=== PATIENT | female | born 1995 ===

== ENCOUNTER 2016-11-29 18:52 | Emergency (ER) | payer MEDICAID, OTHER ==
[2016-11-29 19:29] VITALS: BMI 24.0
[2016-11-29 19:45] VITALS: BP 118/74; PULSE 88; RESP 17; TEMP 98.8; O2SAT 99
--- NOTE | 2016-11-29 20:15 | ED PDOC ---
Arrival/HPI - General Chief Complaint: ENT Problem Time Seen by Provider: 11/29/16 20:12 Historian: Patient - History of Present Illness Narrative History of Present Illness (Text): 11/29/16 20:17 21-year-old female presents today with right lower dental pain and right ear pain. Patient states the dental pain started a few days ago and the patient saw the dentist yesterday and was given amoxicillin. Patient states today she went to the primary care physician and the primary care physician told her that she had a TM perforation and he gave her Zithromax. Patient states she has been taking Motrin for pain without improvement in her symptoms. Patient states that the pain has been worsening. Now pain radiates from the jaw into the right ear. No trismus or drooling. No fevers or chills. No other complaints Time/Duration: Other (2 days) Symptom Onset: Gradual Symptom Course: Worsening Quality: Aching, Throbbing Severity Level: 10 Past Medical History - Provider Review Nursing Documentation Reviewed: Yes - Travel History Have you recently traveled outside [place] w/in the past 3 mons?: No - Infectious Disease Hx of Infectious Diseases: None - Tetanus Immunization Tetanus Immunization: Up to Date - Integumentary Other/Comment: Cleft Lip/palate - Psychiatric Hx Depression: No Hx Emotional Abuse: No Hx Physical Abuse: No Hx Substance Use: No - Suicidal Assessment Feels Threatened In Home Enviroment: No Family/Social History - Physician Review Nursing Documentation Reviewed: Yes Family/Social History: Unknown Family HX Smoking Status: Smoker Currrent Status Unknown Hx Alcohol Use: No Hx Substance Use: No Hx Substance Use Treatment: No Allergies/Home Meds Allergies/Adverse Reactions: Allergies No Known Allergies Allergy (Verified 09/30/15 07:16) Review of Systems - Review of Systems Constitutional: absent: Fatigue, Fevers ENT: Hearing Changes, Other (right ear pain/right lower jaw pain). absent: Sore Throat, Sinus Congestion Respiratory: absent: SOB, Cough Cardiovascular: absent: Chest Pain, Palpitations Gastrointestinal: absent: Abdominal Pain, Nausea, Vomiting Skin: absent: Rash, Pruritis Neurological: absent: Headache, Dizziness Psychiatric: absent: Anxiety, Depression Physical Exam Vital Signs Reviewed: Yes Vital Signs Temp Pulse Resp BP Pulse Ox 11/29/16 19:29 98.8 F 88 17 118/74 99 Temperature: Afebrile Blood Pressure: Normal Pulse: Regular Respiratory Rate: Normal Appearance: Positive for: Well-Appearing, Non-Toxic, Comfortable Pain Distress: None Mental Status: Positive for: Alert and Oriented X 3 - Systems Exam Head: Present: Atraumatic. No: Swelling Conjunctiva: Present: Normal Ears: Present: TM Perf (right TM perforation, no erythema; no mastoid tenderness or erythema). No: NORMAL TM Mouth: Present: Moist Mucous Membranes, Normal Tounge, Normal Teeth (+ right lower molar tenderness; no abscess noted. ). No: Drooling, Trismus Pharnyx: Present: Normal. No: ERYTHEMA, EXUDATE, TONSILS ENLARGED Neck: Present: Normal Range of Motion, Trachea Midline. No: Lymphadenopathy Respiratory/Chest: Present: Clear to Auscultation, Good Air Exchange. No: Respiratory Distress, Accessory Muscle Use Cardiovascular: Present: Regular Rate and Rhythm, Normal S1, S2. No: Murmurs Neurological: Present: GCS=15, Speech Normal Skin: Present: Warm, Dry, Normal Color. No: Rashes Psychiatric: Present: Alert, Oriented x 3 Medical Decision Making ED Course and Treatment: 11/29/16 20:19 21-year-old female with 2 day history of right ear pain currently on amoxicillin and Zithromax. Seen by both the dentist and primary care physician. Presents with continued pain Toradol given IM Tramadol given by mouth Patient was advised to continue amoxicillin and Zithromax as prescribed. She was advised to follow up again with the dentist as well as the ENT specialist. Patient was advised immediate return is symptoms worsen or persist or if new concerning symptoms develop Patient verbalizes understanding of discharge instructions and need for immediate followup. all aspects of this case were discussed the attending of record. Impression: Toothache, earache Continue antibiotics as prescribed by the dentist and the primary care physician Motrin every 6 hours as needed for pain Tramadol 1 tablet every 6 hours as needed for moderate to severe pain: May cause drowsiness Follow-up with the ENT specialist within the next 2 days Follow-up with a dentist within the next 2 days Return if symptoms worsen or persist or if new concerning symptoms develop - Medication Orders Current Medication Orders: Discontinued Medications Ketorolac Tromethamine (Toradol) 30 mg IM STAT STA Stop: 11/29/16 20:14 Last Admin: 07/26/17 20:25 Dose: 30 mg Tramadol HCl (Ultram) 50 mg PO STAT STA Stop: 11/29/16 20:14 Last Admin: 11/29/16 20:25 Dose: 50 mg Disposition/Present on Arrival - Present on Arrival Any Indicators Present on Arrival: No History of DVT/PE: No History of Uncontrolled Diabetes: No Urinary Catheter: No History of Decub. Ulcer: No History Surgical Site Infection Following: None - Disposition Have Diagnosis and Disposition been Completed?: Yes Diagnosis: Pain, dental, Earache Disposition: HOME/ ROUTINE Disposition Time: 20:13 Patient Plan: Discharge Condition: GOOD Discharge Instructions (ExitCare): Earache (ED), Toothache (ED) Additional Instructions: Continue antibiotics as prescribed by the dentist and the primary care physician Motrin every 6 hours as needed for pain Tramadol 1 tablet every 6 hours as needed for moderate to severe pain: May cause drowsiness Follow-up with the ENT specialist within the next 2 days Follow-up with a dentist within the next 2 days Return if symptoms worsen or persist or if new concerning symptoms develop Prescriptions: Ibuprofen [Motrin] 600 mg PO Q6H PRN #20 tab PRN Reason: pain/fever reduction traMADol [Ultram] 50 mg PO Q6H PRN #8 tab PRN Reason: moderate to severe pain Referrals: Marysol Ramirez MD [Primary Care Provider] - Follow up with primary Pravin Lou DO [Staff Provider] - Follow up with primary Forms: [employer] (Italian), WORK NOTE
== END 2016-11-29 20:31 | disposition home or self-care (01) ==
LOC: ED 18:52
DX: K08.89 Other specified disorders of teeth and supporting structures (principal); H92.01 Otalgia, right ear
CPT/HCPCS: 96372; 99283; J1885

== ENCOUNTER 2016-11-30 19:52 | Emergency (ER) | payer MEDICAID ==
[2016-11-30 19:52] VITALS: BMI 24.0
[2016-11-30 20:18] VITALS: O2SAT 98
[2016-11-30 21:25] LABS: BASO # 0.01 K/mm3 (0.0-2.0); BASO % 0.1 % (0.0-3.0); EOS # 0.1 (0.0-0.7); EOS % 0.7 % (1.5-5.0); GRAN # 6.78 (1.4-6.5); GRAN % 68.8 % (50.0-68.0); HEMOGLOBIN 13.1 gm/dL (12.0-16.0); LYMPH % 20.7 % (22.0-35.0); MEAN CELL VOLUME 85.1 fL (80.0-105.0); MEAN CORPUSCULAR HGB CONC 34.1 g/dl (31.0-37.0); MEAN PLATELET VOLUME 8.8 fl (7.0-11.0); MONO % 9.7 % (1.0-6.0); PLATELET COUNT 251 10^3/uL (120.0-450.0); RBC 4.51 10^6/uL (3.5-6.1); RED CELL DISTRIBUTION WIDTH 13.1 % (11.5-14.5); WHITE BLOOD COUNT 9.9 10^3/ul (4.5-11.0)
[2016-11-30 21:42] LABS: ALB/GLOB RATIO 1.3 (1.1-1.8); ALBUMIN 4.2 g/dL (3.0-4.8); AST/SGOT 25 U/L (15-39); BLOOD UREA NITROGEN 10 mg/dL (7-21); GFR AFRICAN-AMERICAN > 60; GFR NON-AFRICAN AMERICAN > 60
[2016-11-30 21:43] LABS: ALT/SGPT 20 U/L (7-56)
[2016-11-30] MEDS ORDERED: Clindamycin 150 mg/mL Inj ONE (21:44)
--- NOTE | 2016-11-30 23:55 | ED PDOC ---
Arrival/HPI - General Chief Complaint: Dental Pain Time Seen by Provider: 11/30/16 20:11 Historian: Patient - History of Present Illness Narrative History of Present Illness (Text): 11/30/16 23:58 21yr old female presents today with right lower dental pain worsening today. pt was seen by dentist, pmd and ER. pt currently on amoxicillin and zithromax. pt presents today with swelling to the right lower jaw. pt denies fever/chills. no cp or sob. no vomiting diarrhea. no trismus or drooling. took tramadol for pain at home. no other complaints. Time/Duration: Other (3 days) Symptom Onset: Gradual Symptom Course: Worsening Quality: Aching Severity Level: 6 Past Medical History - Provider Review Nursing Documentation Reviewed: Yes - Travel History Have you recently traveled outside [place] w/in the past 3 mons?: No - Infectious Disease Hx of Infectious Diseases: None - Tetanus Immunization Tetanus Immunization: Up to Date - Integumentary Other/Comment: Cleft Lip/palate - Psychiatric Hx Depression: No Hx Emotional Abuse: No Hx Physical Abuse: No Hx Substance Use: No - Suicidal Assessment Feels Threatened In Home Enviroment: No Family/Social History - Physician Review Nursing Documentation Reviewed: Yes Family/Social History: Unknown Family HX Smoking Status: Smoker Currrent Status Unknown Hx Alcohol Use: No Hx Substance Use: No Hx Substance Use Treatment: No Allergies/Home Meds Allergies/Adverse Reactions: Allergies No Known Allergies Allergy (Verified 09/30/15 07:16) Review of Systems - Review of Systems Constitutional: absent: Fatigue, Fevers ENT: Other (right lower dental pain and swelling.). absent: Sore Throat, Rhinorrhea, Sinus Congestion Respiratory: absent: SOB, Cough Cardiovascular: absent: Chest Pain, Palpitations Gastrointestinal: absent: Abdominal Pain Genitourinary Female: absent: Dysuria Musculoskeletal: absent: Arthralgias Skin: absent: Rash, Pruritis Neurological: absent: Headache, Dizziness Psychiatric: absent: Anxiety, Depression Physical Exam Vital Signs Reviewed: Yes Vital Signs Temp Pulse Resp BP Pulse Ox 12/01/16 00:00 98.2 F 77 17 104/54 L 98 11/30/16 20:15 100.8 F H 90 20 131/86 98 Temperature: Febrile Blood Pressure: Normal Pulse: Regular Respiratory Rate: Normal Appearance: Positive for: Well-Appearing, Non-Toxic, Comfortable Pain Distress: None Mental Status: Positive for: Alert and Oriented X 3 - Systems Exam Head: Present: Swelling (+ swelling to right cheek.) Mouth: Present: Moist Mucous Membranes, Normal Lips, Normal Tounge. No: Drooling, Trismus, Normal Teeth (+ right lower gingival swelling, tenderness, + right molar tenderness. ) Pharnyx: Present: Normal. No: ERYTHEMA, EXUDATE, TONSILS ENLARGED Nose (External): Present: Atraumatic Neck: Present: Normal Range of Motion, Trachea Midline. No: Lymphadenopathy Respiratory/Chest: Present: Clear to Auscultation, Good Air Exchange. No: Respiratory Distress, Accessory Muscle Use Cardiovascular: Present: Regular Rate and Rhythm, Normal S1, S2. No: Murmurs Skin: Present: Warm, Dry, Normal Color. No: Rashes Psychiatric: Present: Alert, Oriented x 3 Medical Decision Making ED Course and Treatment: 11/30/16 23:57 Patient is nontoxic well-appearing in no distress with stable low grade fever in er. No trismus or drooling, moist mucous membranes cbc;wnl cmp; glucose; 138 clindamycin given IV. Patient reassessment: Patient is feeling better after medications. I advised follow-up with the dentist within the next 2 days. I advised immediate return is symptoms worsen persist or if new concerning symptoms develop advised d/c amox and zithromax and take clindamycin. Patient verbalizes understanding of discharge instructions and need for immediate followup. all aspects of this case were discussed the attending of record. Impression:Dental abscess Motrin every 6 hours as needed for pain/fever reduction Discontinue use of amoxicillin and zithromax. Clindamycin 1 tablet 3 times daily x 10 days Follow-up with the dentist within the next 2 days increase fluids - Lab Interpretations Lab Results: 11/30/16 21:00 11/30/16 21:00 Lab Results 11/30/16 21:00: WBC 9.9, RBC 4.51, Hgb 13.1, Hct 38.4, MCV 85.1, MCH 29.0, MCHC 34.1, RDW 13.1, Plt Count 251, MPV 8.8, Gran % 68.8 H, Lymph % (Auto) 20.7 L, [place] % (Auto) 9.7 H, Eos % (Auto) 0.7 L, Baso % (Auto) 0.1, Gran # 6.78 H, Lymph # 2.0, [place] # 1.0 H, Eos # 0.1, Baso # 0.01 11/30/16 21:00: Sodium 136, Potassium 3.5 L, Chloride 101, Carbon Dioxide 25, Anion Gap 14, BUN 10, Creatinine 0.7, Est GFR ( Amer) > 60, Est GFR (Non- Af Amer) > 60, Random Glucose 138 H, Calcium 9.0, Total Bilirubin 0.4, AST 25, ALT 20, Alkaline Phosphatase 52, Total Protein 7.5, Albumin 4.2, Globulin 3.3, Albumin/Globulin Ratio 1.3 - Medication Orders Current Medication Orders: Discontinued Medications Clindamycin Phosphate (Cleocin) Confirm Administered Dose 600 mg .ROUTE .STK- MED ONE Stop: 11/30/16 21:45 Last Admin: 11/30/16 23:19 Dose: Clindamycin Phosphate 600 mg/ (Sodium Chloride) 54 mls @ 108 mls/hr IVPB STAT STA PRN Reason: Protocol Stop: 11/30/16 21:31 Last Admin: 11/30/16 23:07 Dose: 108 mls/hr Ketorolac Tromethamine (Toradol) 30 mg IVP STAT STA Stop: 11/30/16 21:04 Last Admin: 11/30/16 21:50 Dose: 30 mg Disposition/Present on Arrival - Present on Arrival Any Indicators Present on Arrival: No History of DVT/PE: No History of Uncontrolled Diabetes: No Urinary Catheter: No History of Decub. Ulcer: No History Surgical Site Infection Following: None - Disposition Have Diagnosis and Disposition been Completed?: Yes Diagnosis: Dental abscess Disposition: HOME/ ROUTINE Disposition Time: 22:30 Patient Plan: Discharge Patient Problems: Current Active Problems Problem Status Onset Dental abscess Acute Condition: GOOD Discharge Instructions (ExitCare): Dental Abscess (ED) Additional Instructions: Motrin every 6 hours as needed for pain/fever reduction Discontinue use of amoxicillin and zithromax. Clindamycin 1 tablet 3 times daily x 10 days Follow-up with the dentist within the next 2 days increase fluids Return immediately if symptoms worsen persist or if new concerning symptoms develop Prescriptions: Clindamycin [Cleocin] 150 mg PO TID #21 cap Referrals: Marysol Ramirez MD [Primary Care Provider] - Follow up with primary Terrence Wu DMD [Non-Staff] - Follow up with primary Riley Castillo DMD [Staff Provider] - Follow up with primary Forms: [employer] (Haitian), WORK NOTE
[2016-12-01 00:59] VITALS: BP 104/54; PULSE 77; RESP 17; TEMP 98.2
== END 2016-12-01 00:30 | disposition home or self-care (01) ==
LOC: ED 19:52
DX: K04.7 Periapical abscess without sinus (principal)
CPT/HCPCS: 80053; 85025; 87040; 96374; 99283; J1885